=== PATIENT | male | born 1960 | race Caucasian/White ===

== ENCOUNTER 2017-09-24 06:55 | Emergency (ER) | payer BC ==
[~2017-09-24] VITALS: Ht 180.3 cm; Wt 84.1 kg
[2017-09-24] MEDS ORDERED: PRINIVIL10 MG PO (07:03)
[2017-09-24 07:35] VITALS: TEMP 97.7
[2017-09-24 08:18] VITALS: BP 140/94; PULSE 62
== END 2017-09-24 08:20 | disposition home or self-care (01) ==
LOC: COL.ER 06:55 → EDBD 06:56 → COL.ER 06:56
DX: G43.909 Migraine, unspecified, not intractable, without status migrainosus (principal); I10 Essential (primary) hypertension; E78.5 Hyperlipidemia, unspecified; Z98.890 Other specified postprocedural states
CPT/HCPCS: J1200; J1885; J2550; J2765; J7030

== ENCOUNTER 2018-05-28 20:18 | Emergency (ER) | payer BC ==
[~2018-05-28] VITALS: Ht 180.3 cm; Wt 88.6 kg
[~2018-05-28 20:18] MED LIST: PRINIVIL10 MG PO
[2018-05-28 20:22] VITALS: BP 154/102; TEMP 97.4
[2018-05-28] MEDS ORDERED: LIPITOR20 MG PO (21:18)
[2018-05-28] MEDS ORDERED: ZOFRAN ODT4 MG PO (22:48)
[2018-05-28] MEDS ORDERED: ULTRAM 50MG TAB50 MG PO (22:48)
[2018-05-28 22:57] VITALS: PULSE 70
== END 2018-05-28 22:58 | disposition home or self-care (01) ==
LOC: COL.ER 20:18
DX: G43.909 Migraine, unspecified, not intractable, without status migrainosus (principal); I10 Essential (primary) hypertension; E78.5 Hyperlipidemia, unspecified; Z87.891 Personal history of nicotine dependence; Z98.890 Other specified postprocedural states
CPT/HCPCS: J1200; J2765; J3010; J7040

== ENCOUNTER 2020-02-16 10:41 | Day surgery (SDC) | payer BC ==
[~2020-02-16] VITALS: Ht 182.9 cm; Wt 97.5 kg
[~2020-02-16 10:41] MED LIST changes: +LIPITOR20 MG PO; +ULTRAM 50MG TAB50 MG PO; +ZOFRAN ODT4 MG PO
[2020-02-16 11:37] VITALS: BP 119/82; PULSE 61; TEMP 97.4
[2020-02-16] MEDS ORDERED: ULTRAM 50MG TAB50 MG PO (14:04)
[2020-02-16 15:30] VITALS: BP 120/73; PULSE 72; TEMP 97.8
--- NOTE | 2020-02-16 15:30 | NUR ---
Patient brought back to [facility] [place] bay [address] via cart. Krysten RN at bedside. Placed on monitors, vital signs stable. brought in from waiting room. Patient complains of pain 6/10 to lower abdomen. [address], clean dry and intact. Scrotum support in place. Denies Nausea. Patient requests soda and pudding. Call gardiner within reach, will continue to monitor.
[2020-02-16 15:45] VITALS: BP 118/76; PULSE 73
--- NOTE | 2020-02-16 15:45 | NUR ---
Patient tolerating food and drink without difficulty. Pain pill administered. Will continue to monitor.
[2020-02-16 16:00] VITALS: BP 117/79; PULSE 66
--- NOTE | 2020-02-16 16:00 | NUR ---
Patient states he feels ready to go home. Pain is 4/10 to lower abdomen. Ambulated to bathroom without difficulty. Succesful void. Patient to get dressed at this time.
--- NOTE | 2020-02-16 16:10 | NUR ---
IV removed without difficulty, intact. Dishcarge instructions reviewed with patient and . All questions answered. Patient brought down to lobby via wheelchair. to drive patient home. Assisted into car. All belongings with patient. Patient states he will make his own follow up appointment.
== END 2020-02-16 16:20 | disposition home or self-care (01) ==
LOC: SDCO 10:41
DX: K40.90 Unilateral inguinal hernia, without obstruction or gangrene, not specified as recurrent (principal); E78.5 Hyperlipidemia, unspecified; I10 Essential (primary) hypertension; M10.9 Gout, unspecified; N40.0 Benign prostatic hyperplasia without lower urinary tract symptoms; G43.909 Migraine, unspecified, not intractable, without status migrainosus; F32.9 Major depressive disorder, single episode, unspecified; F41.9 Anxiety disorder, unspecified; Z20.828 Contact with and (suspected) exposure to other viral communicable diseases; Z79.899 Other long term (current) drug therapy
CPT/HCPCS: C1781; J0690; J1100; J1170; J1885; J2270; J2405; J2704; J2710; J3010; J7120